=== PATIENT | male | born 1950 | race Caucasian/White ===

== ENCOUNTER 2021-02-07 12:59 | Emergency (ER) | payer MEDICARE, OTHER ==
[~2021-02-07] VITALS: Ht 182.9 cm; Wt 88.1 kg
[~2021-02-07 12:59] MED LIST: AMLO-186 PO; ATOR20TA58 PO; GABA300C18 PO; HYDR-2761 PO; MENT396L TP; OLME40TA12 PO; [UNRECOGNIZED DRUG - CODE] TP
--- NOTE | 2021-02-07 14:05 | RAD ---
XR HAND_RIGHT 3 VIEWS, XR RT WRIST 3VIEWS History: Reason: fell, right wrist pain, pt unable to straighten rt hand due to prev. stroke. Comparison: None. Technique: 3 views the right wrist. 3 views of the right hand. Findings: Osteopenia. There is no evidence for fracture or dislocation. Flexion positioning at the index finger PIP and thumb MCP. No destructive osseous lesions are seen. Mild degenerative changes of the carpus and interphalangeal joints. Atherosclerotic calcifications in the wrist. No focal soft tissue swelling. Impression: 1. No acute osseous abnormality of the right hand and wrist. 2. Recommend repeat radiographs in 7-14 days if there is concern for occult fracture, particularly i f there is pain at the scaphoid. Electronically signed by: Ildefonso Nathan MD (02/07/2021 2:02 PM) [facility]
--- NOTE | 2021-02-07 14:07 | RAD ---
XR BILATERAL HIP (WITH OR WITHOUT PELVIS) 2 VIEWS_RIGHT History: Reason: fell, right hip pain / Spl. Instructions: / History: Comparison: None. Technique: Portable AP pelvis with 2 coned-down views of the right hip. Findings: Right hip unipolar arthroplasty without evidence of subluxation or periprosthetic fracture. Mild dege nerative changes of the left hip and lower lumbar spine. Atherosclerotic vascular calcifications. No focal soft tissue swelling. Impression: 1. Unipolar right hip arthroplasty without evidence of complication. Electronically signed by: Ildefonso Nathan MD (02/07/2021 2:05 PM) [facility]
[2021-02-07] MEDS ORDERED: DIPH,PERTUSS(ACELL),TET VAC/PF 0.5 ML SYRINGE. VAX IM ONE (15:15)
--- NOTE | 2021-02-07 15:18 | PHYS DOC ---
Past Medical History Past Medical History: CAD, CVA, Hypertension Past Surgical History: Hip Replacement, Pacemaker Additional Past Surgical Histo: Craniotomy Smoking Status: Former Smoker Alcohol Use: None Drug Use: None General Adult EDM: Chief Complaint: MECHANICAL FALL HPI: HPI: Patient is a 70 year old male who presented to ER due to injury to his right hip and right hand. 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 Patient has been able to ambulate with a walker and a boot in his right foot. Today, he was outside, bent over to filler picker a piece of mail that he dropped on the ground, he lost his balance, fell onto his right side, hit his right hand and right hip on the ground. He denied any head or neck injury. Patient denies any back pain, he was able to get up and walk but noticed some abrasion to the back of his right hand so he came here for evaluation. Patient is not up-to-date his tetanus vaccination status. Review of Systems: Review of Systems: Constitutional: Denies fever or chills. [] Eyes: Denies change in visual acuity. [] HENT: Denies nasal congestion or sore throat. [] Respiratory: Denies cough or shortness of breath. [] Cardiovascular: Denies chest pain or edema. [] GI: Denies abdominal pain, nausea, vomiting, bloody stools or diarrhea. [] : Denies dysuria. [] Musculoskeletal: Denies back pain or joint pain. [] Integument: skin abrasion on right hand Neurologic: Denies headache, focal weakness or sensory changes. [] Endocrine: Denies polyuria or polydipsia. [] Lymphatic: Denies swollen glands. [] Psychiatric: Denies depression or anxiety. [] Heart Score: C/O Chest Pain: N/A Risk Factors: Risk Factors: DM, Current or recent (<one month) smoker, HTN, HLP, family history of CAD, obesity. Risk Scores: Score 0 - 3: 2.5% MACE over next 6 weeks - Discharge Home Score 4 - 6: 20.3% MACE over next 6 weeks - Admit for Clinical Observation Score 7 - 10: 72.7% MACE over next 6 weeks - Early Invasive Strategies Current Medications: Current Medications Medications (Trade) Dose Ordered Sig/Lulu Start Time Stop Time Status Last Admin Dose Admin Diphtheria/ Tetanus/Acell Pertussis (ADACEL TDap SYRINGE) 0.5 ml ONCE ONCE 02/07/21 15:15 02/07/21 15:16 UNV Allergies: Allergies: Allergies Coded Allergies Type Severity Reaction Last Updated Verified No Known Drug Allergies 01/02/15 No Physical Exam: PE: Constitutional: Well developed, well nourished, no acute distress, non-toxic appearance. [] HENT: Normocephalic, atraumatic, bilateral external ears normal, oropharynx moist, no oral exudates, nose normal. [] Eyes: PERRLA, EOMI, conjunctiva normal, no discharge. [] Neck: Normal range of motion, no tenderness, supple, no stridor. [] Cardiovascular:Heart rate regular rhythm, no murmur [] Lungs & Thorax: Bilateral breath sounds clear to auscultation [] Abdomen: Bowel sounds normal, soft, no tenderness, no masses, no pulsatile masses. [] Skin: Warm, dry, no erythema, no rash. [] Back: No tenderness, no CVA tenderness. [] Extremities: there is skin abrasion on back of right hand, hip bone is stable. Neurologic: Alert and oriented X 3, right side partial paralysis. Psychologic: Affect normal, judgement normal, mood normal. [] Current Patient Data: Vital Signs: Vital Signs Date Time Temp Pulse Resp B/P (MAP) Pulse Ox O2 Delivery O2 Flow Rate FiO2 02/07/21 13:04 98.1 110 22 150/84 (106) 95 Room Air 98.1 EKG: EKG: [] Radiology/Procedures: Radiology/Procedures: [][facility] [address] [place] [address] IMAGING REPORT Signed PATIENT: JENNIFER CARDENAS ACCOUNT: [id number] : 1950 LOCATION: ER AGE: 70 SEX: M EXAM STATUS: REG ER ORD. PHYSICIAN: MAYANK DAVIS DO REASON: fell, right hip pain PROCEDURE: HIP RIGHT 2V WITH PELVIS XR BILATERAL HIP (WITH OR WITHOUT PELVIS) 2 VIEWS_RIGHT History: Reason: fell, right hip pain / Spl. Instructions: / History: Comparison: None. Technique: Portable AP pelvis with 2 coned-down views of the right hip. Findings: Right hip unipolar arthroplasty without evidence of subluxation or periprosthetic fracture. Mild degenerative changes of the left hip and lower lumbar spine. Atherosclerotic vascular calcifications. No focal soft tissue swelling. Impression: 1. Unipolar right hip arthroplasty without evidence of complication. Electronically signed by: Ildefonso Gresham MD (02/07/2021 2:05 PM) [facility] DICTATED and SIGNED BY: ILDEFONSO GRESHAM MD DATE: 02/07/[id number] [facility] [address] [place] [address] IMAGING REPORT Signed PATIENT: JENNIFER CARDENAS ACCOUNT: [id number] : 1950 LOCATION: ER AGE: 70 SEX: M EXAM STATUS: REG ER ORD. PHYSICIAN: MAYANK DAVIS DO REASON: fell, right wrist pain PROCEDURE: WRIST 3V RIGHT XR HAND_RIGHT 3 VIEWS, XR RT WRIST 3VIEWS History: Reason: fell, right wrist pain, pt unable to straighten rt hand due to prev. stroke. Comparison: None. Technique: 3 views the right wrist. 3 views of the right hand. Findings: Osteopenia. There is no evidence for fracture or dislocation. Flexion positioning at the index finger PIP and thumb MCP. No destructive osseous lesions are seen. Mild degenerative changes of the carpus and interphalangeal joints. Atherosclerotic calcifications in the wrist. No focal soft tissue swelling. Impression: 1. No acute osseous abnormality of the right hand and wrist. 2. Recommend repeat radiographs in 7-14 days if there is concern for occult fr acture, particularly if there is pain at the scaphoid. Electronically signed by: Ildefonso Gresham MD (02/07/2021 2:02 PM) [facility] DICTATED and SIGNED BY: ILDEFONSO GRESHAM MD DATE: 02/07/21 [id number] 0 Course & Med Decision Making: Course & Med Decision Making Pertinent Labs and Imaging studies reviewed. (See chart for details) Patient is a 70-year-old male who was evaluated in ER due to injury to his right hand and right hip. X-ray did not show any fracture. Patient will be discharged home Dragpaul[place] Disclaimer: Dragpaulino Disclaimer: This electronic medical record was generated, in whole or in part, using a voice recognition dictation system. Departure Departure Impression: Primary Impression: Contusion of right hand, initial encounter Additional Impression: Contusion of right hip Disposition: 01 DC HOME SELF CARE/HOMELESS Condition: STABLE Referrals: RAJESH JIMENEZ MD (PCP) Please follow up with your doctor as needed Patient Instructions: Contusion, VIS, Tetanus, Diphtheria, and Pertussis (Tdap) - CDC Additional Instructions: Thank you for visiting our Emergency Department. We appreciate you trusting us with your care. If any additional problems come up don't hesitate to return to visit us. Please follow up with your primary care provider so they can plan additional care if needed and know about the problem that you had. If symptoms worsen come back to the Emergency Department. Any concerning symptoms that start such as chest pain, shortness of air, weakness or numbness on one side of the body, running high fevers or any other concerning symptoms return to the ER. MAYANK DAVIS DO Feb 07, 2021 15:18
[2021-02-07 16:00] VITALS: BP 141/80
== END 2021-02-07 16:30 | disposition home or self-care (01) ==
LOC: ER 12:59
DX: S60.221A Contusion of right hand, initial encounter (principal); S70.01XA Contusion of right hip, initial encounter; G83.89 Other specified paralytic syndromes; I11.9 Hypertensive heart disease without heart failure; Z87.891 Personal history of nicotine dependence; Z86.73 Personal history of transient ischemic attack (TIA), and cerebral infarction without residual deficits; Z98.890 Other specified postprocedural states; Z95.0 Presence of cardiac pacemaker; W18.39XA Other fall on same level, initial encounter; Y93.89 Activity, other specified; Y92.89 Other specified places as the place of occurrence of the external cause; Y99.8 Other external cause status
CPT/HCPCS: 73110; 73130; 73502; 90471; 90715; 99285